=== PATIENT | male | born 1965 | race Caucasian/White ===

== ENCOUNTER 2019-11-17 13:13 | Emergency (ER) | payer OTHER ==
[~2019-11-17] VITALS: Ht 180.3 cm; Wt 77.2 kg
[2019-11-17] MEDS ORDERED: LIDOCAINE 1% Multi-Dose 20 ML VIAL. INJ ONE (13:30)
--- NOTE | 2019-11-17 13:50 | RAD ---
Left hand x-rays 3 views HISTORY: Left hand trauma, laceration of the second finger. FINDINGS: Laceration of the distal second finger with a acute traumatic comminuted open fracture involving the head of the second intermediate phalanx with intra-articular involvement at the DIP joint and extruded bone fragments through the skin defect. No dislocation. Remainder of the hand is intact. IMPRESSION: Laceration of the distal second finger associated with an acute traumatic open comminuted fracture of the intermediate phalanx with intra-articular involvement at the DIP joint. See above. Electronically signed by: Damien Hairston MD (11/17/2019 1:47 PM) [facility]
[2019-11-17] MEDS ORDERED: NEOMY/BACITR/POLYMYXIN OINT PACKET. TP ONE ×2 (14:44→15:00)
--- NOTE | 2019-11-17 14:49 | PHYS DOC ---
Past Medical History Past Medical History: No Pertinent History Past Surgical History: No Surgical History Smoking Status: Never Smoker Alcohol Use: Occasionally General Adult EDM: Chief Complaint: LACERATION/AVULSION HPI: HPI: Patient is a 54-year-old male who presents with an injury to his left index finger. He states that he slipped cutting a piece of wood with a saw and opened a wound on the distal aspect of his left index finger. He denies any other injury. He states his tetanus is up-to-date. He states he can flex his finger at the DIP and PIP. [] Review of Systems: Review of Systems: Constitutional: Denies fever or chills. [] Eyes: Denies change in visual acuity. [] HENT: Denies nasal congestion or sore throat. [] Respiratory: Denies cough or shortness of breath. [] Cardiovascular: Denies chest pain or edema. [] GI: Denies abdominal pain, nausea, vomiting, bloody stools or diarrhea. [] : Denies dysuria. [] Musculoskeletal: Denies back pain or joint pain. [] Integument: Per HPI. [] Neurologic: Denies headache, focal weakness or sensory changes. [] Endocrine: Denies polyuria or polydipsia. [] Lymphatic: Denies swollen glands. [] Psychiatric: Denies depression or anxiety. [] Heart Score: Risk Factors: Risk Factors: DM, Current or recent (<one month) smoker, HTN, HLP, family history of CAD, obesity. Risk Scores: Score 0 - 3: 2.5% MACE over next 6 weeks - Discharge Home Score 4 - 6: 20.3% MACE over next 6 weeks - Admit for Clinical Observation Score 7 - 10: 72.7% MACE over next 6 weeks - Early Invasive Strategies Current Medications: Current Medications Medications (Trade) Dose Ordered Sig/Katia Start Time Stop Time Status Last Admin Dose Admin Lidocaine HCl (Lidocaine 1% 20ml Vial) 20 ml 1X ONCE 11/17/19 13:30 11/17/19 13:34 DC Neomycin/ Polymyxin/ Bacitracin (Triple Antibiotic Ointment) 1 pkt STK-MED ONCE 11/17/19 14:44 11/17/19 14:45 DC Allergies: Allergies: Allergies Coded Allergies Type Severity Reaction Last Updated Verified No Known Drug Allergies 11/17/19 No Physical Exam: PE: Constitutional: Well developed, well nourished, mild distress, non-toxic appearance. [] HENT: Normocephalic, atraumatic, bilateral external ears normal, oropharynx moist, no oral exudates, nose normal. [] Eyes: PERRLA, EOMI, conjunctiva normal, no discharge. [] Neck: Normal range of motion, no tenderness, supple, no stridor. [] Cardiovascular:Heart rate regular rhythm, no murmur [] Lungs & Thorax: Bilateral breath sounds clear to auscultation [] Abdomen: Bowel sounds normal, soft, no tenderness, no masses, no pulsatile masses. [] Skin: Warm, dry, no erythema, no rash. [] Back: No tenderness, no CVA tenderness. [] Extremities: Left index finger has a 3.5 cm complex laceration from the lateral aspect of the finger onto the dorsal surface just proximal to the DIP extending distally and more medially up towards the pad of the finger the wound has debris that look like bone fragments. The patient is able to flex his DIP under tension and the PIP under tension and he is able to extend the DIP and PIP under tension [] Neurologic: Alert and oriented X 3, normal motor function, normal sensory function, no focal deficits noted. [] Psychologic: Affect normal, judgement normal, mood normal. [] Current Patient Data: Vital Signs: Vital Signs Date Time Temp Pulse Resp B/P (MAP) Pulse Ox O2 Delivery O2 Flow Rate FiO2 11/17/19 13:15 98.5 80 16 132/77 (95) 98 Room Air 98.5 EKG: EKG: [] Radiology/Procedures: Radiology/Procedures: [] Impression: REASON: left hand trauma,pt cut hand with saw, 2nd finger. PROCEDURE: HAND LEFT 3V Left hand x-rays 3 views HISTORY: Left hand trauma, laceration of the second finger. FINDINGS: Laceration of the distal second finger with a acute traumatic comminuted open fracture involving the head of the second intermediate phalanx with intra-articular involvement at the DIP joint and extruded bone fragments through the skin defect. No dislocation. Remainder of the hand is intact. IMPRESSION: Laceration of the distal second finger associated with an acute traumatic open comminuted fracture of the intermediate phalanx with intra-articular involvement at the DIP joint. See above. Course & Med Decision Making: Course & Med Decision Making Pertinent Labs and Imaging studies reviewed. (See chart for details) [Procedure: Complex distal second finger laceration repair A digital block was performed with 6 cc of 1% lidocaine with excellent results. The wound was then irrigated and scrubbed with Hibiclens. Then using the forceps and scissors I debrided multiple small bone fragments and debrided the wound. Reformed the wound edges to allow for better approximation. Then using 5-0 Ethilon 5 simple interrupted sutures were placed with excellent approximation of this 3.5 cm wound] Dragon Disclaimer: Dragon Disclaimer: This electronic medical record was generated, in whole or in part, using a voice recognition dictation system. Departure Departure Impression: Primary Impression: Open fracture of middle phalanx of finger of left hand Qualified Codes: S62.621B - Displaced fracture of middle phalanx of left index finger, initial encounter for open fracture Additional Impression: Laceration of left index finger Qualified Codes: S61.221A - Laceration with foreign body of left index finger without damage to nail, initial encounter Disposition: 01 HOME, SELF-CARE Condition: IMPROVED Referrals: UNKNOWN PCP NAME (PCP) MANULE DELEON MD Please make a follow-up appointment with the orthopedic physician for recheck. Patient Instructions: Finger Fracture, Fingertip Laceration Additional Instructions: Follow-up with orthopedic surgery in 6 to 8 days for recheck. Scripts Hydrocodone/Apap 5-325 (NORCO 5-325 TABLET) 1 Each Tablet 1 TAB PO PRN Q6HRS PRN for PAIN, #15 TAB 0 Refills Prov: DEBBI HAYS DO 11/17/19 Cephalexin (CEPHALEXIN) 500 Mg Capsule 1 CAP PO TID, #30 CAP Prov: DEBBI HAYS DO 11/17/19 DEBBI HAYS DO November 17, 2019 14:49
[2019-11-17] MEDS ORDERED: HYDR-3164 PO (14:54)
[2019-11-17] MEDS ORDERED: CEPH500C PO (14:54)
[2019-11-17] MEDS ORDERED: ceFAZolin IM 1 GM VIAL IM ONE (15:00)
[2019-11-17 15:15] VITALS: BP 142/76
== END 2019-11-17 15:17 | disposition home or self-care (01) ==
LOC: ER 13:13
DX: S62.621B Displaced fracture of middle phalanx of left index finger, initial encounter for open fracture (principal); W31.2XXA Contact with powered woodworking and forming machines, initial encounter; Y93.89 Activity, other specified; Y92.69 Other specified industrial and construction area as the place of occurrence of the external cause; Y99.0 Civilian activity done for income or pay
CPT/HCPCS: 29125; 73130; 96372; 99283; J0690; J3490